=== PATIENT | female | born 1960 | race Caucasian/White ===

== ENCOUNTER → 2021-06-27 15:16 | Outpatient (BNVA) | payer BC, SELFPAY | PROVIDERS: Visit Provider Nurse Practitioner Family ==

== ENCOUNTER → 2022-07-18 13:05 | Outpatient (BNVA) | payer BC, SELFPAY | PROVIDERS: PCP Internal Medicine; Visit Provider Nurse Practitioner Family | DX: Z13.89 Encounter for screening for other disorder (principal) ==

== ENCOUNTER 2023-01-20 11:03 | Outpatient (AMB) | payer BC, SELFPAY ==
[2023-01-20 11:10] VITALS: BP 104/70; PULSE 76; O2SAT 98; BMI 26.1
--- NOTE | 2023-01-20 11:10 | A.OFFVIS_ITS ---
Intake Vital Signs 01/20/23 11:10 Height 5 ft 6.5 in Weight 164 lb 6 oz BMI 26.1 BP 104/70 Blood Pressure Location Rt brachial Position Sitting Pulse 76 Pulse Source Pulse Oximeter Pulse Oximetry (%) 98 Oxygen Delivery Method Room Air Intake Visit Reasons: 6m follow up Intake Note: Patient presents for 6 month follow up. Patient states Nasreen been having some migraines but the ubrelvy is taking care of it. Allergies No Known Allergies Allergy (Verified 01/20/23 11:12) HPI HPI Comments History of Present Illness Details 62-yr-old female presents for f/u visit. Pt denies any significant interval medical changes. However, cardiology has referred her for BLE venous ultrasound d/t BLE prominnat varicose veins. Pt reports her migraines are overall stable, In October, November, Dec, she had approx 4 migraine days per month. These were more moderate, more pressure like. She did not have any severe visual aura, but may have some very mild visual symptoms at times. Overall migraine is milder, no significant photo/phonophobia, some mild nausea. She is off the Aimovig and Verapamil- no recent SVTs since ablation. Ubrelvy is usually effective, has very rarely needed to use her Vicodin. Trigger still seems to be weather related. She does think that taking lorraine daily helps. Wonders if her h/o smaller right sided maxillary sinus could be cause of some of he r migraines. She also notes that she is on chronic etodolac for joint inflammation. [facility] Medical History (Updated 01/20/23 @ 12:56 by YOAV Florez) SVT (supraventricular tachycardia) Surgical History Total knee replacement status H/O heart surgery Family History Mother Dementia Osteoarthritis Father COPD (chronic obstructive pulmonary disease) H/O heart surgery Lung cancer Bladder cancer Social History Alcohol intake: current Patient Tobacco Use Status: Former Tobacco user Quit Date: Jun 2021 Substance Use Type: Marijuana Review of Systems Const All systems reviewed & are unremarkable except as noted in HPI and below Physical Exam Vital Signs: Last Vital Signs Pulse 76 01/20/23 11:10 BP 104/70 01/20/23 11:10 Pulse Ox 98 01/20/23 11:10 Oxygen Delivery Method Room Air 01/20/23 11:10 BMI result Body Mass Index 26.1 Const General: cooperative and no acute distress Orientation/consciousness: patient oriented x3 HEENT Head: Yes normocephalic Resp Effort & Inspection: normal respiratory effort and able to speak in complete s entences Neuro General: patient oriented x3, gait normal and CN's II-XI intact bilaterally Cognition (Neuro): normal cognition Motor exam (neuro): 5/5 motor strength present throughout Psych Appearance: grossly normal Mental Status: mental status grossly normal Speech and movement: Normal speech and movement present Affect: normal affect Attitude: cooperative Thought process: Normal thought process present Thought content: Normal thought content present Insight: Good insight present (Psych) Judgement: Good judgement present (Psych) Assessment & Plan Assessment & Plan (1) Migraine without aura: Code(s): G43.009 - Migraine without aura, not intractable, without status migrainosus (2) Seasonal allergies: Code(s): J30.2 - Other seasonal allergic rhinitis (3) Migraine with aura: Code(s): G43.109 - Migraine with aura, not intractable, without status migrainosus Plan Continue Ubrelvy 100mg at onset of migraine, may repeat in 2 hrs, MMD 200mg. Continue Lorraine qd prn. Consider adding saline rinse/spray qhs- pt has Nedi Pot at home. If migraine increases or visual aura returns- consider retrying Aimovig or Verapamil. f/u in 6 months or sooner prn. Coding Level of Care Code Est Pt Level 4 (73253) Diagnoses Migraine without aura G43.009 Seasonal allergies J30.2 Migraine with aura G43.109
== END 2023-01-20 11:50 | disposition home or self-care (01) ==
PROVIDERS: Visit Provider Nurse Practitioner Family
DX: G43.009 Migraine without aura, not intractable, without status migrainosus (principal); J30.2 Other seasonal allergic rhinitis; G43.109 Migraine with aura, not intractable, without status migrainosus
CPT/HCPCS: 99214

== ENCOUNTER → 2023-01-20 11:03 | Outpatient (BNVA) | payer BC, SELFPAY | PROVIDERS: Visit Provider Nurse Practitioner Family ==

== ENCOUNTER → 2024-05-18 15:27 | Outpatient (BNVA) | payer MEDICARE, SELFPAY | PROVIDERS: Absent Provider Physician Assistant Medical; PCP Internal Medicine; Visit Provider Nurse Practitioner Family | DX: G43.019 Migraine without aura, intractable, without status migrainosus (principal); J30.2 Other seasonal allergic rhinitis; M54.2 Cervicalgia ==

== ENCOUNTER 2024-11-17 14:01 | Outpatient (AMB) | payer MEDICARE, SELFPAY ==
[2024-11-17 14:02] VITALS: BP 110/72; PULSE 89; O2SAT 97; BMI 25.0
--- NOTE | 2024-11-17 14:02 | MHC.OFFVIS ---
Vital Signs 11/17/24 14:02 Height 5 ft 6 in Weight 155 lb BMI 25.0 BP 110/72 Blood Pressure Location Lt brachial Position Sitting Pulse 89 Pulse Source Pulse Oximeter Pulse Oximetry (%) 97 Oxygen Delivery Method Room Air Intake Visit Reasons: Follow Up 6mo Intake Note: Patient presents follow up Migraine medication Analytical Data Miner Required: No Accompanied by: Self / Same As Patient Allergies No Known Allergies Allergy (Verified 11/17/24 14:06) HPI Comments Details: 64-yr-old female presents for a f/u of chronic migraines. Pt denies any significant interval medical changes, in May 2021 she had an ablation procedure due to recurring SVTs. She currently pays $209 copay for 10 tablets of Ubrelvy 100mg and it is very expensive. She started smoking again about 1-2 cigarettes per month. Her migraines are triggered by weather changes and barometric pressure differences and dehydration. She takes lorraine for environmental allergies. She has approximately 3-4 migraine days per month in the last 3 months. They are well managed with with Ubrelvy. Occasionally she will need to take a Vicodin 5mg to break a stubborn headache, though she rarely opts for the Vicodin, maybe once a month. The migraines are always r. sided, with tinnitus in r. ear, swelling in the r. side of her face, and pressure. She says they have decreased in severity and are no longer a sharp pain but just a dull constant headache. She denies severe visual auras, just milder visual symptoms, no significant photo/phonophobia, some mild nausea. She has tried Rizatriptan 10mg, Verapamil 100mg, Aimovig 140mg subcut, acupuncture, migraine caps, and many holistic herbal remedies, yet nothing has worked to improve her symptoms. She is now taking estrogen 0.025 mcg 1-2x per week with progesterone 100mg po daily. She has a history of menstrual migraines since her teen years. 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 She stopped taking omeprazole and now feels better with Portuguese bitters. Pt wonders if her h/o smaller right sided maxillary sinus could be the cause for her migraines and if there is any reason for always having the r. sided ethmoid sinus symptoms, with hearing blockage, broken vessels, congestion, swelling and r. sided neck pain. She would like to try to have botox to see if that would suppress the migraines which lead to her r. sided chronic neck pain. Her diet is good, and mood is stable. She does yoga, walks, hikes and stays hydrated to avoid migraines. [facility] Medical History SVT (supraventricular tachycardia) Surgical History Total knee replacement status H/O heart surgery Family History Mother Dementia Osteoarthritis Father COPD (chronic obstructive pulmonary disease) H/O heart surgery Lung cancer Bladder cancer Social History (Updated 11/21/24 @ 21:58 by Jenna Ramos PA-C) Alcohol intake: current Patient Tobacco Use Status: Current someday Tobacco user Smoking Start Date: 11/09/24 Cigarettes Per Day: 2 Substance Use Type: Marijuana Female Reproductive History Menstrual control method: patch (estrogen ) Physical Exam Vital Signs: Last Vital Signs Pulse 89 11/17/24 14:02 BP 110/72 11/17/24 14:02 Pulse Ox 97 11/17/24 14:02 Oxygen Delivery Method Room Air 11/17/24 14:02 BMI result Body Mass Index 25.0 Const General: cooperative, comfortable and no acute distress Nutritional Appearance: average body habitus Orientation/consciousness: patient oriented x3 HEENT Face and sinus: Yes normal facial exam and Yes face symmetric Throat: Yes other ([place] score of 3) Eyes Pupils: Equal, round and reactive pupils present Neck Other: Limited rotation R> L. with pain solicited on extension. Resp Effort & Inspection: normal respiratory effort and able to speak in complete sentences Neuro Other: Limited ROM on extenstion, and limtied ROM R>L, with pain solicited on Rotation to r. General: patient oriented x3 and moves all extremities Cranial nerves: Yes Facial sensation intact/muscles of mastication intact, Yes Equal, round and reactive pupils present, Yes Normal accommodation reflex present, Yes Bilaterally intact EOM present, Yes Normal facial strength present, Yes Midline tongue present and Yes Ability to bilaterally elevate shoulders present (Pain with shrugging shoulders) Cognition (Neuro): normal cognition Gait exam (Neuro): Normal gait present Motor exam (neuro): 5/5 motor strength present throughout and Normal motor muscle tone present throughout Psych Appearance: grossly normal Speech and movement: Normal speech and movement present Affect: normal affect Attitude: cooperative Thought process: Normal thought process present Thought content: Normal thought content present Results Reviewed Results Reviewed: Declines HST today. Assessment & Plan Assessment & Plan (1) Migraine with visual aura: Code(s): G43.109 - Migraine with aura, not intractable, without status migrainosus Category: Medical (2) Migraine without aura: Code(s): G43.009 - Migraine without aura, not intractable, without status migrainosus Category: Medical Qualifiers: Intractability: intractable Status migrainosus presence: without status migrainosus Qualified Code(s): G43.019 - Migraine without aura, intractable, without status migrainosus (3) Seasonal allergies: Code(s): J30.2 - Other seasonal allergic rhinitis Category: Medical (4) Cervicalgia: Code(s): M54.2 - Cervicalgia Category: Medical Plan: Pain with extension and lateral rotation to the r. pt. would like to try botox. Plan Migraine Protocol: Continue taking Ubrelvy as prescribe at the onset of headaches. Magnesium, B12, B6, Vitamin D3 with K2, Turmeric supplements for Osteoarthritis, heated neck wrap, cold compress or migraine caps. Vicodin sparingly once a month and only to break the migraine. Will f/u with medicare and prior authorization as needed for Ubrelvy as this is the only medication with good migraine relief. Cervicalgia Will f/u in 3 months or sooner, for botox prior authorization, call or message the office if you have any concerns. Orders: Orders MR head/brain wo/w con 11/17/24 G43.109 - Migraine with aura, not intractable, without status migrainosus Patient Instructions: Sleep Hygiene provided: set a scheduled bedtime and wake time to help regulate the circadian rhythm and balance the release of pituitary hormones. Sleep in a dark room, temperatures below 68 degrees, and no devices n bed. Limit caffeinated products 6 hours prior to bed, and limit fluids 2-4 hours prior to bed. Gentle night yoga, diffusing essential oils, and playing soft music can be relaxing. Discussed smoking and estrogen use, as these can lead to DVT and to be cautious with signs and symptoms, patient acknowledges the risks of DVTS and has had this conversation with her Landscape Gardener also. Discussed staying hydrated, avoiding triggers and f/u after MRI, and prior authorization for possible Botox therapy. Labs reviewed with patient today. Coding Level of Care Code Est Pt Level 4 (82497) Complex EM visit Add On G2211 Diagnoses Migraine with visual aura G43.109 Intractable migraine without aura and without status migrainosus G43.019 Intractability: intractable Status migrainosus presence: without status migrainosus Seasonal allergies J30.2 Cervicalgia M54.2 Time Spent (min) 30 Comment Improving Migraines with cervicalgia
--- OUTSIDE RECORDS SUMMARY | 2024-11-17 14:45 | XMS_ITS | Patient Health Record ---
Author Organization [facility] Address [address] [address] Care Team Providers Care Spinning Frame Changer Name Role Phone Cyn Alejandra Primary Care Provider Unavailab Jordan Barr Unavailable [phone] Allergies Allergen (clinical drug ingredient) Drug/Non Drug Allergy documented on EMR Reaction Allergy Type Onset Date Status EPINEPHrine Unknown Drug Allergy Activ e Reason For Referral No Information Medications Medication SIG (Take, Route, Frequency, Duration) Notes Start Date End Date Status Cambia 50 MG 1 packet on an empty stomach one time Orally Once a day 09/05/2015 Active Magnesium Aspartate Active Cambia 50 MIX CONTENTS OF 1 PACKET WITH 1-2 OUNCES OF WATER. DRINK IMMEDIATELY A SINGLE DOSE NEEDED.; Duration: 30 duplicate Not-Taking Atenolol 25 MG take 2 tablets by mouth at bedtime; Duration: 30 duplicate Not-Taking dexAMETHasone 2 MG 1 tablet Orally Twic e a day; Duration: 4 days 09/24/2016 Not-Taking Calcium Active Atenolol 50 MG 1 tablet Orally Once a day; Duration: 90 days Active Triamcinolone Acetonide 0.1 % APPLY TWICE DAILY TO RASH ON ARMS BREAST BACK FOR UPTO 2 WEEKS ON... (REFER TO PRESCRIPTION NOTES). External; Duration: 14 Not-Taking HYDROcodone-Acetaminoph en 5-325 MG (Schedule II Drug) take 1 tablet by mouth once daily if needed Oral; Duration: 30 Active Estradiol 0.025 MG/24HR Transdermal; Duration: 28 Active Omeprazole 40 MG 1 capsule Orally Onc e a day Active Progesterone Micronized 100 MG take 1 capsule by mouth once daily at bedtime Oral; Duration: 90 Not-Taking Zembrace SymTouch 3 MG/0.5ML 0.5 ml as needed one time Subcutaneous Once a day as needed at onset of migraines; Duration: 30 days 12/03/2016 Active Rizatriptan Benzoate 10 MG Oral; Duration: 9 Active Zomig 5 MG as directed Nasally 1 dose at the onset of migraine; Duration: 6 days 12/03/2016 Active Plan Of Treatment No Information Insurance Providers Payer Name Payer Address Payer Phone Subscriber Number Group Number Insured Name Patient Relationship to Insured Coverage Start Date Coverage End Date [facility] [address] [place] [phone] [id number] JOSEFINA MARTIN Self - patient is the insured Medical (General) History Medical History History ICD Code tachycardia smoker hiatal hernia
--- OUTSIDE RECORDS SUMMARY | 2024-11-17 14:45 | XMS_ITS | Patient Health Record ---
Author Organization [facility] Address [address] [place] [id number] Support Name Relationship Address Phone Navya Lobato Guarantor Unknown [phone] Reason For Referral No Information Medications Medication SIG (Take, Route, Frequency, Duration) Notes Start Date End Date Status PROGESTERONE 100 MG CAPSULE 0 for 0 *please review for potential update for e-prescription and drug interaction check* 01/05/2014 Active VIVELLE-DOT 0.025 MG PATCH MG/24 HR 0 for 0 *please review for potential update for e-prescription and drug interaction check* 01/05/2014 Active Atenolol 25 MG 60 Oral Take 2 at bedtime for 30 05/25/2014 Active Magnesium Oxide 400 mg 60 Oral 1 twice a day for 30 01/06/2014 Active Reglan 10 MG 30 Oral Take 1 daily as needed for 30 01/06/2014 Active Vitamin B-2 100 mg 120 Oral Take 2 twice a day for 30 02/03/2014 Active CAMBIA 50 MG POWDER PACKET 0 *please review for potential update for e-prescription and drug interaction check* [facility] 09/06/2014 Active NAPROXEN SODIUM 550 MG TAB 60 Take 1 twice daily for 30 *please review for potential update for e-prescription and drug interaction check* 01/06/2014 Active NARATRIPTAN HCL 2.5 MG TABLET 9 1 at the onset of headache as directed for 30 *please review for potential update for e-prescription and drug interaction check* 02/03/2014 Active Plan Of Treatment No Information Insurance Providers Payer Name Payer Address Payer Phone Subscriber Number Group Number Insured Name Patient Relationship to Insured Coverage Start Date Coverage End Date [facility]-0012 [address] [place] [id number] Navya Lobato Self - patient is the insured
== END 2024-11-17 14:49 | disposition home or self-care (01) ==
LOC: HO.HSMS 14:01
PROVIDERS: PCP Internal Medicine; Visit Provider Physician Assistant Medical
DX: G43.109 Migraine with aura, not intractable, without status migrainosus (principal); G43.019 Migraine without aura, intractable, without status migrainosus; J30.2 Other seasonal allergic rhinitis; M54.2 Cervicalgia
CPT/HCPCS: 99214; G2211

== ENCOUNTER → 2024-11-17 14:01 | Outpatient (BNVA) | payer MEDICARE, SELFPAY | PROVIDERS: PCP Internal Medicine; Visit Provider Physician Assistant Medical | DX: G43.109 Migraine with aura, not intractable, without status migrainosus (principal); G43.019 Migraine without aura, intractable, without status migrainosus; J30.2 Other seasonal allergic rhinitis; M54.2 Cervicalgia | CPT/HCPCS: 99212 ==

== ENCOUNTER 2024-12-05 13:42 | Outpatient (REF) | payer MEDICARE, SELFPAY ==
--- NOTE | ~2024-12-05 | MR_ITS ---
CLINICAL HISTORY: G43.109 - Migraine with aura, not intractable, without status migrainosus MRI brain without and with intravenous contrast Comparison: None provided Findings: No abnormal diffusion restriction to suggest acute ischemia. No intracranial hemorrhage or extra-axial fluid collection. No intracranial mass, positive mass-effect, midline shift or hydrocephalus. No white matter disease. Normal flow void within the intracranial vessels. Postcontrast images demonstrate no abnormal enhancement. Orbits, visualized portions of mastoid air cells and paranasal sinuses clear. Calvarium and superficial soft tissue are unremarkable. Impression: No intracranial abnormality. This document has been electronically signed by: Allyson Rowe MD on 12/07/2024 12:57:34
--- OUTSIDE RECORDS SUMMARY | 2024-12-05 13:45 | XMS_ITS | Patient Health Record ---
Author Organization [facility] Address [address] [place] [phone] Support Name Relationship Address Phone Navya Lobato Guarantor Unknown [phone] Reason For Referral No Information Medications Medication [...] update for e-prescription and drug interaction check* [facility] 09/06/2014 Active NAPROXEN SODIUM 550 MG [...] Insured Coverage Start Date Coverage End Date [facility] [address] FIONA[place]ITH [id number] Navya Lobato Self - patient is the insured
--- OUTSIDE RECORDS SUMMARY | 2024-12-05 13:46 | XMS_ITS | Patient Health Record ---
Author Organization [email or web address] Address [address] [address] Care Team Providers Care Sheet Rock Installer Name Role Phone Cyn Alejandra Primary Care Provider Unavailab Jordan Barr Unavailable [phone] Allergies Allergen (clinical drug ingredient) Drug/Non Drug [...] Insured Coverage Start Date Coverage End Date [facility] [address] [place] [phone] [id number] JOSEFINA MARTIN Self - patient is the insured Medical (General) History Medical History History ICD Code tachycardia smoker hiatal hernia
--- OUTSIDE RECORDS SUMMARY | 2024-12-05 13:46 | XMS_ITS | Patient Health Record ---
Author Organization [facility] [place] Address [address] [place] [address] Care Team Providers Care Online Merchandising Specialist Name Role Phone Ny CROWE, Cyn Primary Care Provider Harlan Freeman Unavailable [phone] Allergies Allergen (clinical drug ingredient) Drug/Non Drug Allergy documented on EMR Reaction Allergy Type Onset Date Status EPINEPHrine heart tachycardia Drug Allergy Active Reason For Referral No Information Medications Medication SIG (Take, Route, Frequency, Duration) Notes Start Date End Date Status Ciclopirox Olamine 0.77 % 1 application to affected area Externally Twice a day; Duration: 30 days Active Flaxseed Oil 1000 MG Orally Active Riboflavin 100 MG Orally Ac tive vicodin 5-325mg 1 tablet orally prn Active CalMag Thins 1000/500MG Active Rizatriptan Benzoate 10 MG 1 tablet as n eeded one time Orally prn Active Diclofenac Potassium prn Active Atenolol 50 MG 1 tablet Orally Once a day Active Estradiol 0.025 MG/24HR 1 patch to skin Transdermal Two times a Week Active Social History Tobacco Use: Social History Observation Description Date Details (start date - stop date) Current Smoker NA - NA Tobacco Use/Smoking Question Answer Notes Are you a: current smoker When did you start smoking? 1974 How often do you smoke cigarettes? every day How many cigarettes a day do you smoke? 5 or les s How soon after you wake up d o you smoke your first cigarette? 31-60 minutes Are you interested in quitting? Thinking about q uitting Additional Findings: Tobacco User Heavy cigarett e smoker (20-39 cigs/day) Alcohol Screen Question Answer Notes Did you have a drink containing alcohol in the p ast year? Yes Points 0 Interpretation Negative Tobacco use other than smoking: Question Answer Notes Are you an other tobacco user? No Problems Problem Type SNOMED Code ICD Code Onset Dates Problem Status W/U Status Risk Notes Problem Tinea unguium (B35.1) Active confirmed Plan Of Treatment Pending Test Test Name Order Date X ray : Foot, right 2V 12/05/2017 Insurance Providers Payer Name Payer Address Payer Phone Subscriber Number Group Number Insured Name Patient Relationship to Insured Coverage Start Date Coverage End Date [facility] [place] [address] [place] [phone] [id number] Navya Lobato Self - patient is the insured Medical (General) History Medical History History ICD Code Anemia Headaches Migraines Psoriasis/eczema Raynauds syndrome Warts Measles Mumps Chicken pox SVT Surgical History Surgery Date(Month/Year) Cyst removal from thumb 8yrs ago
== END 2024-12-05 13:43 | disposition home or self-care (01) ==
LOC: HO.MRI 13:42
PROVIDERS: PCP Internal Medicine; Visit Provider Physician Assistant Medical
DX: G43.109 Migraine with aura, not intractable, without status migrainosus (principal)
CPT/HCPCS: 70553; A9585

== ENCOUNTER → 2024-12-05 13:47 | Outpatient (BNV) | payer MEDICARE, SELFPAY | PROVIDERS: PCP Internal Medicine; Visit Provider Radiology Diagnostic Radiology | DX: G43.109 Migraine with aura, not intractable, without status migrainosus (principal) | CPT/HCPCS: 70553 ==